=== PATIENT | female | born 1985 | race Caucasian/White ===

== ENCOUNTER 2023-03-13 18:58 | Emergency (ER) | payer OTHER, SELFPAY ==
--- NOTE | ~2023-03-13 | CT_ITS ---
EXAMINATION: CT lumbar spine wo con DATE: 03/13/2023 20:17 INDICATION: lumbago . TECHNIQUE: Computed tomography (CT) of the lumbar spine was performed without intravenous contrast. A utomated exposure control and iterative reconstruction technique were employed. The dose-length produ ct was 910.63 mGy-cm. COMPARISON: None. FINDINGS: 5 nonrib-bearing lumbar-type vertebral bodies. Pedicles intact. Normal vertebral body align ment. Vertebral body heights preserved. Mild disc space narrowing and diffuse bulge at L4-5. Moderate disc space narrowing with a moderate bulge and a central 6 mm extrusion, extending 8 mm inferiorly a long the posterior aspect of S1, with mild canal stenosis at the same level. Mild multilevel facet ar thropathy. No significant neural foraminal narrowing. IMPRESSION: No acute fracture or traumatic malalignment detected in the lumbar spine. Moderate degenerative disc disease at L5-S1 with a 6 mm central extrusion causing mild central canal stenosis. Reviewed, dictated and finalized at location [facility]. ORT OPERATIONS SPECIALIST IMPRESSION: No acute fracture or traumatic malalignment detected in the lumbar spine. Moderate degenerative disc disease at L5-S1 with a 6 mm central extrusion causi ng mild central canal stenosis.
[2023-03-13 19:01] VITALS: BP 125/78; PULSE 91; RESP 16; TEMP 36.2; O2SAT 100
--- NOTE | 2023-03-13 19:40 | ED.BACK ---
HPI - Back Pain/Injury General Chief Complaint: Back Pain/Injury Stated Complaint: back pain Time Seen by Provider: 03/13/23 19:06 History of Present Illness HPI Narrative: 38 y/o F reports for evaluation for low back pain Since yesterday. Patient states she had An achy pain in her low back that started yesterday and then woke up today worsening pain. Patient states the pain is localized to her low back does not radiate down her legs. She denies known injury or trauma, however does state she is a 26 lb baby which she carries a lot and may have tweaked her back while carrying her baby. States her pain is improved when she sits still and is worse with movement and walking. She denies saddle anesthesia, fever, n/v, lower extremity weakness, hx of cancer, steroid use. States she used a heating pad and tens device earlier with no relief. Related Data Home Medications Medication Instructions Recorded Confirmed bupropion HCl 300 mg 24 hr tablet, mg PO 03/13/23 extended release galcanezumab-gnlm 120 mg/mL mg subcut 03/13/23 subcutaneous pen injector (Emgality Pen) sumatriptan succinate 100 mg tablet mg PO 03/13/23 Allergies Allergy/AdvReac Type Severity Reaction Status Date / Time No Known Allergies Allergy Verified 03/13/23 19:00 Review of Systems Review of Systems: CONSTITUTIONAL: Denies fever, chills, or sweats. EYES: Denies visual changes, redness, or discharge. ENT: Denies rhinorrhea, congestion, sore throat, or otalgia. CARDIOVASCULAR: Denies chest pain, palpitations, or edema. RESPIRATORY: Denies cough or dyspnea. GASTROINTESTINAL: Denies abdominal pain, nausea, vomiting, or diarrhea. GENITOURINARY: Denies dysuria or hematuria. SKIN: Denies rash or itching. MUSCULOSKELETAL: see HPI NEUROLOGIC: Denies headache, numbness, or weakness. PSYCHIATRIC: Denies anxiety or depression. Exam Narrative: GENERAL: well appearing. Nontoxic appearing. Appears uncomfortable. HEAD: Normocephalic, atraumatic. EYES: PERRLA and EOMI. ENT: Nares clear, no rhinorrhea or epistaxis. Mucous membranes moist. NECK: Supple. BACK: No midline thoracic lumbar spinous tenderness, step-offs or deformities. Tenderness to the lumbar spine and right paraspinous muscles that step-offs or deformities. Two symmetrical, small circular areas of ecchymosis near the lumbar spine likely secondary to tens device used earlier today. No other overlying skin changes, erythema, or rashes. Negative straight leg raise bilaterally. Sensation intact throughout lower extremities. No saddle anesthesia. Knee extension and flexion,Dorsiflexion and plantar flexion 5/5 bilaterally. CHEST: Clear to auscultation. No respiratory distress. HEART: Regular rate and rhythm. No murmur heard. Normal peripheral pulses. ABDOMEN: Soft, nontender, nondistended, normal active bowel sounds. no CVA tenderness. EXTREMITIES: Normal range of motion. No edema. SKIN: Warm, dry, no rash. NEURO: No focal deficits. Alert and oriented x3 Course Vital Signs Vital signs: Vital Signs Temperature 97.2 F L 03/13/23 19:01 Pulse Rate 91 03/13/23 19:01 Respiratory Rate 16 03/13/23 19:01 Blood Pressure 125/78 03/13/23 19:01 Pulse Oximetry 100 03/13/23 19:01 Temperature 97.2 F L 03/13/23 19:01 Pulse Rate 91 03/13/23 19:01 Respiratory Rate 16 03/13/23 19:01 Blood Pressure 125/78 03/13/23 19:01 Pulse Oximetry 100 03/13/23 19:01 MDM - Back Pain/Injury MDM Narrative Medical decision making narrative: 30-year-old female reports for evaluation for low back pain that started yesterday and worsened today. See HPI for further history. No known trauma or injury. No radiculopathy symptoms. No signs or symptoms of cauda equina or infectious etiology. she is neurovascularly intact. Vitals are stable and she is afebrile. Given midline tenderness, CT lumbar spine obtained showing no acute fracture or traumatic malalignment det
[2023-03-13] MEDS: ACETAMINOPHEN 500 MG TABLET 1000 MG PO (19:47)
[2023-03-13] MEDS: LIDOCAINE 5% PATCH 1 PATCH TRANSDERM (19:47)
[2023-03-13] MEDS: CYCLOBENZAPRINE HCL 10 MG TABLET PO (19:47)
[2023-03-13] MEDS: KETOROLAC 30 MG/ML VIAL (*BKC) IM (19:47)
[2023-03-13 20:10] LABS: Appearance Urine Cloudy (Clear); Bacteria Urine Rare /hpf; Bilirubin Urine Negative (Negative); Blood Urine Negative (Negative); Color Urine Yellow (Yellow); Glucose Urine UA Negative (Negative); Ketones Urine Trace mg/dL (Negative); Leukocyte Esterase Ur Trace LEU/UL (Negative); Nitrate Urine Negative (Negative); Non Pathogenic Casts 0-2; Protein Urine Trace mg/dL (Negative); RBC Urine 0-2 /hpf (0-2); Specific Grav Ur 1.029 (1.001-1.035); Squamous Epithelial Cell Urine Many /hpf (Few)
[2023-03-13 20:15] LABS: Add Urine Microscopic? YES
[2023-03-13 21:48] VITALS: BP 105/73; PULSE 88; RESP 17; O2SAT 100
== END 2023-03-13 21:52 | disposition home or self-care (01) ==
PROVIDERS: Emergency Provider Physician Assistant; PCP Nurse Practitioner Family
DX: S39.012A Strain of muscle, fascia and tendon of lower back, initial encounter (principal); R82.998 Other abnormal findings in urine; X58.XXXA Exposure to other specified factors, initial encounter
CPT/HCPCS: 72131; 81001; 81025; 87086; 87088; 96372; 99284; A9270; J1100; J1885

== ENCOUNTER 2024-03-20 19:18 | Emergency (ER) | payer OTHER, SELFPAY ==
--- NOTE | ~2024-03-20 | CT_ITS ---
CT abdomen pelvis w con Ordering provider: Nkechi Bojorquez PA-C History: 39 years Female with . nausea, vomiting, UTI . Comparison: None. Technique: CT abdomen and pelvis with IV and without oral contrast. Automated exposure control and it erative reconstruction technique were employed. The dose-length product was 319.97 mGy-cm. 100 mL Omn ipaque 350 was given IV. Findings: VISUALIZED LOWER CHEST: Dependent atelectatic changes. Trace of pericardial effusion. UPPER ABDOMINAL ORGANS: Liver: Tiny cysts in the right lobe of the liver segment 7. Fat infiltration. Gallbladder: Normal. Spleen: Normal. Stomach/duodenum: Normal. Pancreas: Normal. Adrenals: Normal. Kidneys: 1 cm simple cyst is seen in the right kidney lower pole. PELVIC ORGANS: The bladder is underfilled. Uterus: Slightly bulky. Ruptured follicle is seen in the l eft ovary measuring 1.7 cm. BOWEL AND MESENTERY: Colon: No evidence of diverticulitis. Normal appendix. Small Bowel: Fluid is seen in the small bowel with minimal dilatation seen in the left upper quadrant . Enteritis is possible. Follow-up advised. No definite obstruction. Peritoneum/mesentery: No free air or free fluid. mesenteric lymphadenopathy. Is noted with the larges t lymph node seen measures 1.5 cm. RETROPERITONEUM: Normal aorta. No retroperitoneal lymphadenopathy. MUSCULOSKELETAL: Superficial soft tissues: The superficial soft tissues are normal. Bones: Normal spine. IMPRESSION: 1. Trace of pericardial effusion. 2. Tiny cyst in the right lobe of the liver. 3. Tiny cyst in the right kidney. 4. Ruptured follicle in the left ovary. 5. Fluid in the small bowel with possible enteritis. Follow-up advised. 6. Mesenteric lymph nodes nodes. 7. Fat infiltration of the liver. Reviewed, dictated and finalized at location A. E MACHINE OPERATOR
[2024-03-20 19:21] VITALS: BP 101/79; PULSE 80; RESP 16; TEMP 36.2; O2SAT 100
[2024-03-20 20:52] LABS: BEDSIDEPREGUCG Negative (Negative)
[2024-03-20 20:57] LABS: Basophils Absolute Auto 0.1 K/mm3 (0.0-0.1); Basophils Percent Auto 0.7 % (0.2-1.2); Eosinophils Percent Auto 0.4 % (0-4.4); Hematocrit 37.8 % (37.0-47.0); Hemoglobin 12.3 g/dL (12.0-15.0); Immature Granulocyte Absolute 0.01 K/mm3 (0.00-0.031); Immature Granulocyte Percent A 0.1 % (0-0.5); Lymphocytes Absolute Auto 1.54 K/mm3 (0.9-3.2); Lymphocytes Percent Auto 21.5 % (18.3-44.2); Mean Corpuscular HGB Conc 32.5 g/dl (32-36); Mean Corpuscular Hemoglobin 28.4 pg (26-34); Mean Corpuscular Volume 87.3 fl (80-100); Mean Platelet Volume 10.3 fl (7.4-10.4); Monocytes Absolute Auto 0.8 K/mm3 (0.1-0.6); Monocytes Percent Auto 10.5 % (2.6-8.5); Neutrophils Absolute Auto 4.8 K/mm3 (1.3-6.7); Neutrophils Percent Auto 66.8 % (45.5-73.1); Platelet Count Result 285 k/mm3 (150-375); Red Blood Count 4.33 M/mm3 (4.2-5.4); Red Cell Distribution Width 13.2 % (11.5-14.5); White Blood Count 7.2 K/mm3 (4.5-10.0)
[2024-03-20 21:01] LABS: Add Urine Microscopic? YES; Appearance Urine Cloudy (Clear); Bacteria Urine Rare /hpf; Bilirubin Urine Negative (Negative); Blood Urine Negative (Negative); Color Urine Yellow (Yellow); Glucose Urine UA Negative (Negative); Ketones Urine 2+ mg/dL (Negative); Leukocyte Esterase Ur 1+ LEU/UL (Negative); Nitrate Urine Negative (Negative); Protein Urine Negative (Negative); Specific Grav Ur 1.015 (1.001-1.035); Squamous Epithelial Cell Urine Moderate /hpf (Few); pH Urine 5.5 (5.0-9.0)
[2024-03-20 21:12] LABS: Alanine Aminotransferase 23 U/L (6-35); Albumin Level 4.4 g/dL (3.5-5.1); Alkaline Phosphatase 57 U/L (38-126); Anion Gap 6 mmol/L (4-12); Aspartate Amino Transferase 33 U/L (14-36); Bilirubin,Total 0.5 mg/dL (0.2-1.3); Blood Urea Nitrogen 16 mg/dL (7-17); Calcium 8.6 mg/dL (8.4-10.2); Carbon Dioxide 25 mmol/L (22-30); Chloride 107 mmol/L (98-107); Estimated CRCL calculation 68 ml/min; Estimated Glomerular Filt Rate > 60; Glucose 86 mg/dL (65-110); Lipase 113 U/L (23-300); Potassium 3.8 mmol/L (3.4-5.0); Sodium 138 mmol/L (137-145)
[2024-03-20 21:35] VITALS: BP 132/74; PULSE 81; RESP 14; TEMP 36.4; O2SAT 99
[2024-03-20] MEDS: SODIUM CHLORIDE 0.9% IV 1,000 ML 999 ML IV CONT (21:36)
[2024-03-20] MEDS: ONDANSETRON INJ 4 MG/2 ML VIAL IV PUSH (21:37)
--- NOTE | 2024-03-20 22:06 | ED.NAVMDI ---
HPI - Nausea/Vomiting/Diarrhea General Chief complaint: Nausea/Vomiting/Diarrhea Stated complaint: n/v x2d Time Seen by Provider: 03/20/24 20:32 Source: patient Mode of arrival: ambulatory Limitations: no limitations History of Present Illness HPI Narrative: This is a 39 year old female that presents to the ER for abdominal pain nausea and vomiting. Reports she started on Tuesday having crampy abdominal pain and chills. She has had persistent nausea and vomiting since. Denies fevers, dysuria, hematuria. Related Data Home Medications Medication Instructions Recorded Confirmed bupropion HCl 300 mg 24 hr tablet, mg PO 03/13/23 extended release galcanezumab-gnlm 120 mg/mL mg subcut 03/13/23 subcutaneous pen injector (Emgality Pen) sumatriptan succinate 100 mg tablet mg PO 03/13/23 Allergies Allergy/AdvReac Type Severity Reaction Status Date / Time No Known Allergies Allergy Verified 03/13/23 19:00 Review of Systems Review of Systems: CONSTITUTIONAL: Denies fever GASTROINTESTINAL: Reports abdominal pain, nausea, vomiting. Denies diarrhea. GENITOURINARY: Denies dysuria or hematuria. All systems reviewed & are unremarkable except as noted in HPI and below PMFSH Past Medical History Medical History (Updated 03/20/24 @ 23:06 by Nkechi Bojorquez PA-C) History of ADHD Social History Social History (Updated 03/20/24 @ 22:07 by Nkechi Bojorquez PA-C) Substance use: never Exam Narrative: GENERAL: Well-appearing, well-nourished, and in no acute distress. HEAD: Normocephalic, atraumatic. EYES: EOMI. CHEST: Clear to auscultation. No respiratory distress. No wheezes rales or rhonchi HEART: Regular rate and rhythm. No murmur heard. Normal peripheral pulses. ABDOMEN: Soft, nondistended, normal active bowel sounds. Mild tenderness to palpation in the lower abdomen, without guarding EXTREMITIES: Normal range of motion. No edema. SKIN: Warm, dry, no rash. NEURO: No focal deficits. Alert and oriented x3. PSYCH: Normal mood and affect Course Course Emergency Course: patient updated on her workup and agrees with plan of care Vital Signs Vital signs: Vital Signs Temperature 97.1 F L 03/20/24 19:21 Pulse Rate 80 03/20/24 19:21 Respiratory Rate 16 03/20/24 19:21 Blood Pressure 101/79 03/20/24 19:21 Pulse Oximetry 100 03/20/24 19:21 Oxygen Delivery Room Air 03/20/24 19:21 Temperature 97.5 F L 03/20/24 21:35 Pulse Rate 81 03/20/24 21:35 Respiratory Rate 14 03/20/24 21:35 Blood Pressure 132/74 03/20/24 21:35 Pulse Oximetry 99 03/20/24 21:35 Oxygen Delivery Room Air 03/20/24 19:21 MDM - Nausea/Vomiting/Diarrhea MDM Narrative Medical decision making narrative: Patient presents to the emergency department for lower abdominal discomfort, nausea and vomiting. She is afebrile and nontoxic appearing. Her vitals are stable. Cbc without leukocytosis. Metabolic panel without concerning findings. Urine with evidence of infection. This was sent for culture. Patient started on IV antibiotics. CT abdomen pelvis shows trace pick pericardial effusion. Small cysts in the liver and right kidney. Possible enteritis. Some inflamed lymph nodes. Fat infiltration of the liver. patient updated on her workup and agrees with plan of care. She is to have further follow-up with her primary provider. Will be started on oral antibiotics. She was given warnings to return to the ER Differential Diagnosis Differential diagnosis: Likely food poisoning, gastroenteritis, drug-induced nausea and vomiting, dehydration and other (UTI) Lab Data Attestation: I reviewed the patient's lab results. 03/20/24 20:48 03/20/24 20:48 Labs: Lab Results 03/20/24 03/20/24 Range/Units 20:48 20:50 WBC 7.2 (4.5-10.0) K/mm3 RBC 4.33 (4.2-5.4) M/mm3 Hgb 12.3 (12.0-15.0) g/dL Hct 37.8 (37.0-47.0) % MCV 87.3 (80-100) fl MCH 28.4 (26-34) pg MCHC 32.5 (32-36) g/dl RDW 13.2 (11.5-14.5) % Plt Count 285 (150-375) k/mm3 MPV 10.3 (7.4-10.4) fl Immature Gran % (Auto) 0.1 (0-0.5) % Neut % (Auto) 66.8 (45.5-73.1) % Lymph % (Auto) 21.5 (18.3-44.2) % [place] % (Auto) 10.5 H (2.6-8.5) % Eos % (Auto) 0.4 (0-4.4) % Baso % (Auto) 0.7 (0.2-1.2) % Lymph # (Auto) 1.54 (0.9-3.2) K/mm3 [place] # (Auto) 0.8 H (0.1-0.6) K/mm3 Eos # (Auto) 0.0 (0-0.3) K/mm3 Baso # (Auto) 0.1 (0.0-0.1) K/mm3 Abs Immat Gran (auto) 0.01 (0.00-0.031) K/mm3 Absolute Neuts (auto) 4.8 (1.3-6.7) K/mm3 Absolute Nucleated RBC 0.000 (0.0-0.012) K/mm3 Nucleated RBC % 0.0 (0.0-0.2) % Sodium 138 (137-145) mmol/L Potassium 3.8 (3.4-5.0) mmol/L Chloride 107 (98-107) mmol/L Carbon Dioxide 25 (22-30) mmol/L Anion Gap 6 (4-12) mmol/L BUN 16 (7-17) mg/dL Creatinine 0.80 (0.7-1.0) mg/dL Estim Creat Clear Calc 68 ml/min Estimated GFR > 60 (59 - ) Glucose 86 (65-110) mg/dL Calcium 8.6 (8.4-10.2) mg/dL Total Bilirubin 0.5 (0.2-1.3) mg/dL AST 33 (14-36) U/L ALT 23 (6-35) U/L Alkaline Phosphatase 57 (38-126) U/L Total Protein 7.0 (6.3-8.2) g/dL Albumin 4.4 (3.5-5.1) g/dL Lipase 113 (23-300) U/L Urine Color Yellow (Yellow) Urine Appearance Cloudy H (Clear) Urine pH 5.5 (5.0-9.0) Ur Specific [place] 1.015 (1.001-1.035) Urine Protein Negative (Negative) mg/dL Urine Glucose (UA) Negative (Negative) mg/dL Urine Ketones 2+ H (Negative) mg/dL Ur Blood (Man) Negative (Negative) Urine Nitrate Negative (Negative) Urine Bilirubin Negative (Negative) Urine Urobilinogen 1.0 (<2.0) mg/dL Leukocyte Esterase Rfl 1+ H (Negative) MANE/UL Urine RBC 3-5 H (0-2) /hpf Urine WBC 11-20 H (0-3) /hpf Ur Squamous Epith Cells Moderate (Few) /hpf Urine Bacteria Rare /hpf Urine Casts 3-5 POC Urine HCG, Qual Negative (Negative) Imaging Data Radiologist's impression: ITS Impressions Abdomen/Pelvis CT 03/20/24 22:10 IMPRESSION: 1. Trace of pericardial effusion. 2. Tiny cyst in the right lobe of the liver. 3. Tiny cyst in the right kidney. 4. Ruptured follicle in the left ovary. 5. Fluid in the small bowel with possible enteritis. Follow-up advised. 6. Mesenteric lymph nodes nodes. 7. Fat infiltration of the liver. Critical Care Time Critical Care Time Critical Care Time: No Discharge Plan Discharge Clinical Impression: Gastroenteritis, Pericardial effusion, Acute UTI, Kidney cysts, Hepatic cyst Patient Disposition: Home, Self-Care Condition: Improved Instructions: Urinary Tract Infection in Women (ED), Gastroenteritis (ED), Acute Nausea and Vomiting (ED), Pericardial Effusion (ED), Cyst (ED) Additional Instructions: Return to the ER if you experience fever, chest pain, shortness of breath, worsening abdominal pain with nausea and vomiting, you are unable to keep down liquids or solids, blood in the urine or any other symptoms that are concerning to you Small, frequent meals. [place] diet. Remain well hydrated. Take oral antibiotic as prescribed. Ondansetron as needed for nausea Follow up with your primary care doctor Prescriptions: New cefdinir 300 mg capsule 300 mg PO Q12H 5 Days Qty: 10 0RF ondansetron 4 mg tablet,disintegrating 4 mg PO Q8H PRN (Reason: nausea and vomiting) Qty: 10 0RF No Action sumatriptan succinate 100 mg tablet PO bupropion HCl 300 mg tablet extended release 24 hr PO Emgality Pen 120 mg/mL pen injector SUBCUT cyclobenzaprine 10 mg tablet 10 mg PO TID PRN (Reason: muscle spasm) Qty: 20 0RF lidocaine 5 % adhesive patch,medicated 1 patch topical DAILY Qty: 15 0RF Rx Instructions: leave on most painful area for up to 12 hrs. do not use more than 1 patch in a 24-hour period. ibuprofen 800 mg tablet 800 mg PO TID PRN (Reason: pain) Qty: 20 0RF Follow-up/Referrals: SHAYE,LIOR IBARRA [Primary Care Provider] -
== END 2024-03-20 23:27 | disposition home or self-care (01) ==
PROVIDERS: Emergency Provider Physician Assistant; PCP Nurse Practitioner Family
DX: K52.9 Noninfective gastroenteritis and colitis, unspecified (principal); I31.39 Other pericardial effusion (noninflammatory); N39.0 Urinary tract infection, site not specified; N28.1 Cyst of kidney, acquired; K76.89 Other specified diseases of liver; F90.9 Attention-deficit hyperactivity disorder, unspecified type
CPT/HCPCS: 36415; 74177; 80053; 81001; 81025; 83690; 85025; 87086; 96365; 96375; 99284; J0696; J2405; J7030; Q9967